=== PATIENT | male | born 1950 | race Caucasian/White ===

== ENCOUNTER 2016-08-23 11:41 | Day surgery (SDC) | payer MEDICARE, OTHER ==
[~2016-08-23] VITALS: Ht 172.7 cm; Wt 99.8 kg
[~2016-08-23 11:41] MED LIST: 0.9% Sodium Chloride 1,000 ML IV SCH; ASPI-973 PO; LOSA50TA37 PO; METO25TA6 PO; MULT-1018 PO; OMEG1000 PO; OMEP20CA11 PO; PRE20 PO; ROSU40TA PO; Sodium Chloride LOK Flush 10 mL Syringe IV PRN; TADA20TA PO; fentaNYL-PF 50 mCg/mL 2 mL Inj IVPUSH PRN
[2016-08-23 12:19] VITALS: BP 147/89; PULSE 62; RESP 14; O2SAT 95
[2016-08-23 13:15] VITALS: BP 118/75; PULSE 59; RESP 15; O2SAT 92
[2016-08-23 13:25] VITALS: BP 112/67; PULSE 67; RESP 16; O2SAT 96
[2016-08-23 13:28] VITALS: BP 112/69; PULSE 57; RESP 16; O2SAT 96
--- NOTE | 2016-08-23 23:56 | ENDO ---
[address] [address] ENDOSCOPY PROCEDURE PATIENT: PUJA WEST : 1950 MR#: [id number] ADMIT: 08/23/2016 JOB ID: [id number] DATE OF PROCEDURE: 08/23/2016 PRIMARY PROVIDER: Adrián Hernandez MD. PROCEDURE: Colonoscopy with hot snare polypectomy and cold forceps polypectomy. INDICATIONS: A 66-year-old male with a personal history of colon polyps. EQUIPMENT: [employer]. SEDATION: 1. Versed 3 mg. 2. Fentanyl 75 mcg. COMPLICATIONS: None identified. BOWEL PREPARATION: Fair, adequate exam. PROCEDURE INFORMATION: After the risks and benefits were explained, written and verbal informed consent was obtained. The patient was brought into the endoscopy suite and placed into the left lateral decubitus position. Sedation was achieved using the above-stated medications with the addition of oxygen via nasal cannula. A digital rectal examination was accomplished. Mild to moderate internal and external nonbleeding, nonthrombosed hemorrhoids. The scope was introduced into the rectum and advanced to the cecum as identified by the appendiceal orifice and ileocecal valve. The scope was slowly withdrawn to carefully examine the mucosa for any defects or lesions. Retroflexed views were avoided in the rectum. Multiple direct views were made through the dentate line for exclusion of pathology. The colon was decompressed, the scope was removed from the patient who tolerated the procedure well. FINDINGS: In the rectosigmoid region there were two polyps ranging in size from about a 7 to 9 mm. They were removed with hot snare. Throughout the mid colon there were four other diminutive polyps removed by way of a combination of cold forceps and cold snare. There were scattered diverticula throughout the sigmoid all the way through the transverse. ENDOSCOPIC DIAGNOSES: 1. Diverticulosis. 2. Hemorrhoids. 3. Multiple colon polyps. RECOMMENDATIONS: 1. Await histopathology. 2. Repeat colonoscopy in three years.
--- NOTE | 2016-08-24 15:00 | PATH ---
SURGICAL PATHOLOGY Attending Physician:Mary Alice Rodrigues CASE STATUS: Signed Out PATIENT NAME: PUJA WEST PID: [id number] : 1950 DATE COLLECTED:08/23/2016 22:13 SPECIMEN: 1: Colon, Polyp 2: Colon, Polyp CLINICAL HISTORY: 1). COLON POLYP X4 2). 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 ICD10 D12.7 GROSS DESCRIPTION: Received are two formalin-filled containers, both labeled with the patient' s name: 1. Received in formalin, labeled with the patient' s name and "colon", are four fragments of echavarria, soft tissue ranging in size from 0.1 x 0.1 x 0.1 cm to 0.2 x 0.1 x 0.1 cm. All fragments are totally submitted in cassette 1A. 2. Received in formalin, labeled with the patient' s name and "rectosigmoid", are multiple fragments of echavarria, soft tissue ranging in size from 0.1 x 0.1 x 0.1 cm to 0.9 x 0.8 x 0.8 cm. The larger fragment is divided, All fragments are totally submitted in cassette 2A. ([id number]) MICRO DESCRIPTION: See diagnosis. ICD-9 CODES: CPT CODES: 1: 00027 2: 46421 Electronically Signed Out Jad Schrader MD [facility] [address], [place] [address] Technical component performed at [facility], [facility] [address], [place], [address]
== END 2016-08-23 23:59 | disposition home or self-care (01) ==
LOC: END 11:41
PROVIDERS: ATTEND Internal Medicine Gastroenterology
DX: Z12.11 Encounter for screening for malignant neoplasm of colon (principal); D12.7 Benign neoplasm of rectosigmoid junction; D12.3 Benign neoplasm of transverse colon; K57.30 Diverticulosis of large intestine without perforation or abscess without bleeding; K64.8 Other hemorrhoids; K64.4 Residual hemorrhoidal skin tags; Z86.010 Personal history of colon polyps; Z80.0 Family history of malignant neoplasm of digestive organs; I25.10 Atherosclerotic heart disease of native coronary artery without angina pectoris; I10 Essential (primary) hypertension; G47.33 Obstructive sleep apnea (adult) (pediatric); E78.5 Hyperlipidemia, unspecified; K21.9 Gastro-esophageal reflux disease without esophagitis; D69.6 Thrombocytopenia, unspecified; Z87.891 Personal history of nicotine dependence; Z79.52 Long term (current) use of systemic steroids; Z79.82 Long term (current) use of aspirin
CPT/HCPCS: 45380; 45385; 88305; 99153; G0500; J7030